=== PATIENT | female | born 1950 | race African-American/Black ===

== ENCOUNTER 2020-12-04 01:28 | Inpatient (IN) | payer OTHER ==
[~2020-12-04] VITALS: Ht 165.1 cm; Wt 136.7 kg
[2020-12-04 01:29] VITALS: BP 185/61
[2020-12-04 03:00] LABS: ABSOLUTE NEUTROPHILS 4.1 thou/uL (1.4-8.2); BASOPHILS 0.6 % (0.0-2.0); EOSINOPHILS 3.6 % (0.0-3.0); HEMATOCRIT 36.1 % (37.0-47.0); HEMOGLOBIN 11.7 gm/dL (12.0-15.0); MCH 26.3 pg (26.0-34.0); MCHC 32.5 g/dL (28.0-37.0); MONOCYTES 4.8 % (1.0-8.0); PLATELET COUNT 324 thou/uL (150-400); RBC 4.45 mil/uL (4.20-5.00); RDW 15.4 % (10.5-14.5); WBC 7.5 thou/uL (4.0-11.0)
[2020-12-04 03:07] LABS: ANION GAP 12 mmol/L (7-16); BUN 9 mg/dL (7-18); CALCIUM 8.7 mg/dL (8.5-10.1); CHLORIDE 102 mmol/L (98-107); CO2 26 mmol/L (21-32); GLUCOSE 128 mg/dL (74-106); POTASSIUM 3.7 mmol/L (3.5-5.1); SODIUM 140 mmol/L (136-145)
[2020-12-04 03:13] LABS: URINE BILIRUBIN NEGATIVE (Negative); URINE BLOOD TRACE (Negative); URINE CLARITY SL CLOUDY; URINE COLOR YELLOW; URINE GLUCOSE-RANDOM* NEGATIVE (Negative); URINE KETONES TRACE (Negative); URINE PROTEIN (DIPSTICK) NEGATIVE (Negative); URINE SPECIFIC GRAVITY >= 1.030 (1.005-1.035); URINE UROBILINOGEN 0.2 E.U./dl (0.2-1.0)
[2020-12-04 03:15] LABS: ALBUMIN 3.7 g/dL (3.4-5.0); SGOT 26 U/L (15-37); SGPT 33 U/L (30-65); TOTAL BILIRUBIN 0.4 mg/dL (0.2-1.0); TOTAL PROTEIN 7.4 g/dL (6.4-8.2); TROPONIN-I <0.06 ng/mL (<0.06)
[2020-12-04 03:21] LABS: URINE LEUKOCYTES-REFLEX 1+ (Negative); URINE NITRITE-REFLEX POSITIVE (Negative)
[2020-12-04 03:30] LABS: COARSE GRANULAR CASTS 0-3 Few /LPF (None Seen); CRYSTALS None Seen /LPF (None Seen); FINE GRANULAR CASTS 0-3 Few /LPF (None Seen); HYALINE CASTS 0-3 Few /LPF (None Seen); MUCUS 4-6 Moderate strn/LPF (None Seen); SQUAMOUS 0-3 Few /LPF (0-3); URINE RBC 3-10 Few /HPF (0-2); WBC CLUMPS Moderate (None Seen)
--- NOTE | 2020-12-04 07:10 | EKG ---
[place] [address] [email or web address] [place] [address] ELECTROCARDIOGRAM REPORT Name: CARLOS HARDY Room #: 170-7 ADM IN M.R.#: [id number] Admission: 12/04/20 Attend Phys: Anthony Christian MD Discharge: Date of : 48 Report #: [id number] [facility] ED Test Date: 2020-12-04 Test Time: 02:21:45 Pat Name: CARLOS HARDY Department: Room: 170 Gender: F Concrete Batch Plant Operator: : 1950 Requested By: Grey Davis Order Number: [id number] MD: Girish Gutiérrez Measurements Intervals [place] Rate: 96 P: 41 AK: 183 QRS: 5 QRSD: 100 T: -41 QT: 314 QTc: 397 Interpretive Statements Sinus rhythm Nonspecific repol abnormality, inferior leads Artifact in lead(s) II,aVR,aVL,aVF No previous ECG available for comparison Electronically Signed On 12-04-2020 7:10:39 CDT by Girish Gutiérrez [email or web address] <ELECTRONICALLY SIGNED> By: Girish Gutiérrez MD, [facility] 12/04/20709 0 0 Girish Gutiérrez MD, FACC /EPI
[2020-12-04 13:45] VITALS: BP 151/66
--- NOTE | 2020-12-04 16:10 | NUR ---
MULTIPLE BED CHANGE X6 SINCE 1400
[2020-12-04 19:01] VITALS: BP 151/66
[2020-12-04 20:38] VITALS: BP 142/73
[2020-12-05 00:03] VITALS: BP 143/67
[2020-12-05 05:07] LABS: ABSOLUTE NEUTROPHILS 2.3 thou/uL (1.4-8.2); BASOPHILS 1.4 % (0.0-2.0); HEMATOCRIT 35.5 % (37.0-47.0); HEMOGLOBIN 11.5 gm/dL (12.0-15.0); LYMPHOCYTES 48.9 % (24.0-44.0); MCH 26.5 pg (26.0-34.0); MCHC 32.5 g/dL (28.0-37.0); MCV 81.4 fL (80.0-100.0); MONOCYTES 4.9 % (1.0-8.0); PLATELET COUNT 318 thou/uL (150-400); POLYS 40.8 % (36.0-66.0); RBC 4.36 mil/uL (4.20-5.00); RDW 15.6 % (10.5-14.5); WBC 5.7 thou/uL (4.0-11.0)
[2020-12-05 05:24] LABS: CALCIUM 8.9 mg/dL (8.5-10.1); MAGNESIUM 1.5 mg/dL (1.8-2.4); POTASSIUM 3.5 mmol/L (3.5-5.1)
[2020-12-05 07:40] VITALS: BP 141/74
[2020-12-05] MEDS ORDERED: AMITRIPTYLINE100 MG PO (10:08)
[2020-12-05] MEDS ORDERED: VOLTAREN GEL 1100 G1 TOP (10:09)
[2020-12-05] MEDS ORDERED: LASIX 40 MG TAB40 MG PO (10:10)
[2020-12-05] MEDS ORDERED: NEURONTIN300 MG PO (10:11)
[2020-12-05] MEDS ORDERED: KRISTALOSE20 GM PO (10:12)
[2020-12-05] MEDS ORDERED: MELOXICAM15 MG PO (10:13)
[2020-12-05] MEDS ORDERED: GLUCOPHAGE500 MG PO (10:14)
[2020-12-05] MEDS ORDERED: ZYPREXA2.5 MG PO (10:15)
[2020-12-05] MEDS ORDERED: OXYBUTYNIN ER 55 M1 PO (10:16)
[2020-12-05] MEDS ORDERED: SIMVASTATIN80 MG PO (10:17)
[2020-12-05] MEDS ORDERED: ZANAFLEX4 M1 PO (10:18)
[2020-12-05] MEDS ORDERED: AMBIEN 5 MG TABL5 M1 PO (10:19)
--- NOTE | 2020-12-05 14:03 | NUR ---
ASSESSMENT: CM REVIWED CHART AND SPOKE WITH PT. PT WAS ADMITTED DUE TO WEAKNESS/UTI.PT HAS HX OF LEUKEMIA THAT IS CURRENTLY IN REMISSION. PT REPORTS THAT SHE LIVES IN A HOUSE WITH HER . PT REPORTS SHE HAS 6 STEPS IN THE HOME TO GET TO THE MAIN LEVEL BUT HAS A STAIR GLIDER WHERE SHE DOES NOT HAVE TO USE ANY STEPS. PT REPORTS SHE HAS A CANE AND WALKER AT HOME. PT ALSO REPORTS HAVING A COMMODE. PT STATES SHE HAS NOT HAD HH IN THE PAST THAT SHE IS AWARE OF BUT REPORTS SHE HAS BEEN TO [facility]. PT REPORTS IF SHE IS NEEDING SNF SHE PREFERS TO GO BACK THERE. PT/OT ORDERED TO SEE PATIENT. 5N CONSULT HAS ALSO BEEN PLACED. CM SENT REFERRAL TO [facility] BACKUP. CM NOTIFIED BEDSIDE RN THAT COVID TEST WILL LIKELY NEED TO BE COMPLETED PRIOR TO DISCHARGE AND TO PLEASE ORDER. CM WILL CONTINUE TO FOLLOW TO ASSIST NEEDED. AWAITING INPUT FROM 5N.
--- NOTE | 2020-12-05 14:40 | NUR ---
Received awake on bed. Due medications given as prescribed, able to swallow meds w/o difficulty. On room air. Vital signs stable. On MS, not on telemetry; no complains and signs of chest pain, crushing sensation and heaviness. Assisted in ADLs. On carb controlled diet- tolerating well; no nausea, no vomiting and no abdominal pain noted. On blood sugar monitoring, taken and recorded accordingly. With purewick in place- output measured and recorded accordingly; with episode of incontinence- checked regularly and changed as needed. With R chest port- accessed and saline locked; IV nurse informed thru voice mail re: chest port. With LE edema- advised pt to keep elevated. Complained of pain, due PRN pain meds given as prescribed. To continue monitoring patient. With consult to Dr Gillespie for possible rehab stay- store receiving specialistLAUREN Webster informed re consult. CM called and said to do Covid swab for possible SNF/Acute rehab stay- pt refused covid swab- CM informed re: this.
[2020-12-05] MEDS ORDERED: MELATONIN10 M1 PO (15:59)
[2020-12-05 17:03] VITALS: BP 146/81
[2020-12-05 21:02] VITALS: BP 168/83
--- NOTE | 2020-12-06 03:36 | NUR ---
ASSUMED PT CARE AT 1900.PT C/O PAIN ON HER KNEES,MANAGED WITH MED.BG MONITORED,NO COVERAGE NEEDED.R CHEST PORTHA CATH IN PLACE,CXR COMPLETED.PT USES A CPAP AT NIGHT,CONT PULSE OX IN PLACE.EXTERNAL FEMALE CATH IN PLACE WITH A LIGHT YELLOW URINE NOTED IN THE CANNISTER.PT SLEEPING ON HER BED AT THIS TIME.CALL LIGHT WITHIN REACH.
[2020-12-06 04:45] VITALS: BP 159/83
[2020-12-06 05:26] LABS: HEMATOCRIT 38.6 % (37.0-47.0); HEMOGLOBIN 12.5 gm/dL (12.0-15.0); MCH 26.6 pg (26.0-34.0); MCHC 32.3 g/dL (28.0-37.0); MCV 82.4 fL (80.0-100.0); RBC 4.69 mil/uL (4.20-5.00); RDW 15.9 % (10.5-14.5); WBC 7.1 thou/uL (4.0-11.0)
[2020-12-06 05:31] LABS: CREATININE 0.9 mg/dL (0.6-1.0); POTASSIUM 3.5 mmol/L (3.5-5.1)
[2020-12-06 07:45] VITALS: BP 136/81
[2020-12-06 16:29] VITALS: BP 132/80
--- NOTE | 2020-12-06 19:19 | NUR ---
Assumed pt care this am, diet and medications are tolerated. Had 1 bm this shift, blood sugar monotoring done. POC followed with no signs or verbalizations of distress noted. COVID PCR test done and sent to lab. Endorsed to the night sift.
[2020-12-06 19:50] VITALS: BP 119/52; BP 172/78
--- NOTE | 2020-12-07 02:47 | NUR ---
PT LYING IN BED. DENIES NEED FOR PAIN MEDICATION. EXT FEMALE CATH IN PLACE. RESTING COMFORTABLY. NO NEEDS VOICED. CALL LIGHT WITHIN REACH. FREQUENT OBSERVATION.
[2020-12-07 07:40] VITALS: BP 106/60
[2020-12-07 16:00] VITALS: BP 118/65
--- NOTE | 2020-12-07 18:58 | NUR ---
ATTEMPTED TO TRANSFER PT TO CHAIR AND SHE WAS IN TOO MUCH PAIN TO MOVE AN INCH. SHE PRN PAIN MEDICATION ADIMINISTERED. WILL CONT WITH PLAN OF CARE.
[2020-12-07 19:05] VITALS: BP 119/70
[2020-12-08 04:10] VITALS: BP 130/73
--- NOTE | 2020-12-08 05:06 | NUR ---
PT LYING IN BED. LORTAB PROVIDING PAIN RELIEF. RESTING COMFORTABLY. NO NEEDS VOICED. CALL LIGHT WITHIN REACH. FREQUENT OBSERVATION.
[2020-12-08 07:30] VITALS: BP 121/59
--- NOTE | 2020-12-08 11:13 | NUR ---
ASSUMED PT CARE THIS AM. PT IS ALERT & ORIENTED X4. PT HAS R CHEST PORT SINGLE LUMEN. PT IS ACCUCHECK ACHS. PT HAS EXTERNAL CATH ON. PT WAS WORKING WITH TODAY. PT C/O OF PAIN AND GIVEN PAIN MEDICATION. PT USES 02 NC 2L/MIN AND USES CPAP AT NIGHT. CM STATED THAT PT POSSIBLE D/C ANGELINA. PT ON THE CHAIR WATCHING TV. WILL CONTINUE TO MONITOR PT. FOLLOW POC.
--- NOTE | 2020-12-08 13:36 | NUR ---
ON-GOING ASSESSMENT: CM REVIEWED CHART AND MET WITH PATIENT TO DISCUSS SNF. PT REPORTS THAT THE SNF SHE WENT TO WAS IN [facility]. CM CLARIFIED AND PT IS WANTING TO GO TO [facility] NOT [facility]. CM FAXED REFERRAL TO [facility] AND SPOKE WITH KENYON IN ADMISSIONS. HE REPORTS HER REFERRAL LOOKS GOOD BUT HE WILL NOT HAVE A BED OPEN UNTIL LIKELY TOMORROW 12/09. CM UPDATED ATTENDING AND PLANS ARE FOR PATIENT TO GO TO SNF TOMORROW. CM WILL CONTINUE TO FOLLOW TO ASSIST NEEDED.
[2020-12-08 16:02] VITALS: BP 130/64
[2020-12-08 19:26] VITALS: BP 135/75
--- NOTE | 2020-12-09 02:07 | NUR ---
ASSUMED CARE AT 1900. PT IS A/O X4 AND IS UP WITH MAX ASSISTANCE USING WALKER AND GB. 2 LITERS NC AND CPAP AT NOC WITH CONTINOUS PULSE OX MACHINE. VSS. AFEBRILE. INCONTINENT OF URINE AND HAS A EXTERNAL FEMALE CATHETER IN PLACE. PATENT AND DRAINING LIGHT YELLOW URINE. C/O PAIN TO LE.PRN PAIN CREAM APPLIED TO BILAT KNEES. PRN PAIN MEDICATION GIVEN DIRECTED. HS BS 117. FALL PRECAUTIONS AND SCD'S IN PLACE, CALL LIGHT IS WITHIN REACH. PT CALLS OUT APPROPRIATELY. PROGRESSING TOWARDS PLAN OF CARE DC GOALS.
[2020-12-09 03:41] VITALS: BP 124/68
[2020-12-09 07:26] VITALS: BP 135/74
--- NOTE | 2020-12-09 13:04 | NUR ---
ON-GOING ASSESSMENT: CM REVIEWED CHART. CM SPOKE WITH KENYON IN ADMISSIONS AT [facility] WHO REPORTS THEY CAn ACCEPT PATIENT BUT WANTING COPY OF HER SECONDARY INSURANCE CARD. CM FAXED TO [facility]. ATTENDING STATING PT IS MEDICALLY STABLE FOR DISCHARGE. CM NOTIFIED KENYON IN ADMISSIONS THAT PATIENT HAS HAD ONE MODERNA INJECTION ON 12/02. TENTATIVE TRANSPORTATION TIME OF 1400 HAS BEEN SCHEDULED AND ATTENDING AWARE. AWAITING DISCHARGE ORDERS SO CM CAN FAX TO FACILITY. CM ATTEMPTED TO CONTACT PATIENTS X2 BUT NO ANSWER AT THIS TIME. CM WILL CONTINUE TO FOLLOW. CHART COPY WAS ORDERED AND BEDSIDE RN GIVEN THE NUMBER FOR REPORT. AWAITING ORDERS.
[2020-12-09] MEDS ORDERED: LIPITOR40 MG PO (13:13)
[2020-12-09] MEDS ORDERED: ACETAMINOPHEN325 M1 PO (13:14)
[2020-12-09] MEDS ORDERED: TRADJENTA5 MG PO (13:14)
[2020-12-09] MEDS ORDERED: CEPHALEXIN500 MG PO (13:15)
--- NOTE | 2020-12-09 13:45 | NUR ---
UPON ROUNDING ON THIS PT, AROUND 1240, WAS TOLD BY PT THAT SHE IS DISCHARGING "IN AN HOUR." FLUSHED PORT, BUT NO BLOOD RETURN. SHE REPORTS WHEN PORT INITIALLY ACCESSED THERE WAS BLOOD RETURN. RN, FILI, WAS UNUSRE WHETHER OR NOT PT WOULD BE CONTINUING ABX AT [facility]. THIS RN REMOVED CURRENT DRESSING, DE-ACCESSED PORT, CLEANED SITE AND RE-ACCESSED PORT, ALL PER HOSPITAL POLICY. FLUSHED BRISKLY, BUT STILL NO BLOOD RETURN. DISCUSSED WITH LAUREN PENN THAT PORT SHOULD BE TREATED WITH ALTEPLASE PRIOR TO HER LEAVING.
--- NOTE | 2020-12-09 15:31 | NUR ---
ASSUMED PT CARE AROUND 0710.PT ALERT X ORIENTED X 4.ON 2L/O2/NC. CPAP AT NIGHT.MAX ASSISTANCE NEEDED. INCONTINENCE OF BB. EXTERNAL FEMALE CATHETER IN PLACE.NO SKIN ISSUES. PAIN PARTIALLY CONTOLLED BY PAIN MEDS.ACCU CHECKS AND ACHS. IV RT CHEST, HEPARIN FLUSHED AND DC'D. FALL PRECAUTION IN PLACE. CALL LIGHT IN REACH. WILL CALL APPROPRIATELY.COVID NEGATIVE. DISCHARGING TO [facility] IN [place]. EXPECTED TIME OF MILL HELPER AROUND 1700. DICHARGE REPORT GIVEN TO VERONA AT THE FACILITY. SVETLANA SPOKE TO PT'S SON . WILL CONTINUE TO MONITOR.
[2020-12-09 15:53] VITALS: BP 137/74
== END 2020-12-09 18:20 | DRG 690 ==
LOC: ER 01:28 → EROBS 04:59 → 4S 04:59 → EROBS 16:11 → 4S 19:21
PROVIDERS: Emergency Medicine; Nurse Practitioner; ADMIT Hospitalist; ATTEND Hospitalist
PROC: 5A09357 Assistance with Respiratory Ventilation, Less than 24 Consecutive Hours, Continuous Positive Airway Pressure (ICD-10-PCS; principal; 2020-12-08)
PROC: 5A09357 Assistance with Respiratory Ventilation, Less than 24 Consecutive Hours, Continuous Positive Airway Pressure (ICD-10-PCS; 2020-12-09)
DX: N39.0 Urinary tract infection, site not specified (principal); C95.91 Leukemia, unspecified, in remission; Z68.43 Body mass index [BMI] 50.0-59.9, adult; E66.01 Morbid (severe) obesity due to excess calories; S80.02XA Contusion of left knee, initial encounter; S80.01XA Contusion of right knee, initial encounter; W18.39XA Other fall on same level, initial encounter; I10 Essential (primary) hypertension; E78.5 Hyperlipidemia, unspecified; E11.9 Type 2 diabetes mellitus without complications; E78.00 Pure hypercholesterolemia, unspecified; M19.071 Primary osteoarthritis, right ankle and foot; Z66 Do not resuscitate; Y93.89 Activity, other specified; Z88.5 Allergy status to narcotic agent; Y92.89 Other specified places as the place of occurrence of the external cause; Y99.8 Other external cause status; Z79.899 Other long term (current) drug therapy; Z20.822 Contact with and (suspected) exposure to COVID-19
CPT/HCPCS: 10195

== ENCOUNTER 2021-02-13 19:44 | Inpatient (IN) | payer OTHER ==
[~2021-02-13] VITALS: Ht 165.1 cm; Wt 138.8 kg
--- NOTE | ~2021-02-13 | EMS ---
[address] [address] EMS Patient Care Report Name: CARLOS HARDY Room #: 353-P [facility] IN M.R.#: [id number] Admission: 02/14/21 Attend Phys: Сергей Christine MD Discharge: 02/19/21 Date of : 48 Report #: [id number] THIS REPORT FOR: //name// Report Transmitted: 02/24/2021 14:24 EMS Care Summary [place], [place]/[facility] Incident [id number] @ 02/13/2021 18:58 Incident Location [address] [place], [place] [id number] Patient CARLOS HARDY Female, 70 Years 1950 Patient Address [address] [place] [address] Patient History Cancer, Unspecified,Diabetes,Hypertension (HTN), Patient Allergies Codeine,Iodine, Patient Medications Metformin, Chief Complaint swelling of lower legs Disposition Transported No Lights/[place] Dispatch Reason Sick Person Transported To [facility] Narrative patient is found sitting in a chair at the scene. patient states that since late November she has noticed that both of her lower legs have started to swell. patient states that the swelling is slowly migrating up her legs and that the swelling is now to her upper thigh area. patient is alert and talking. patient [address] [address] EMS Patient Care Report Name: CARLOS HARDY Room #: 353-P [facility] IN [facility]#: [id number] Admission: 02/14/21 Attend Phys: Сергей Christine MD Discharge: 02/19/21 Date of : [birth year] Report #: [id number] denies any trauma or injury. patient has no other complaints at this time. Initial Vitals @19:18P: 108,R: 16,BP: 175/91,Pain: 2/10,GCS: 15,Glucose: 114,CO: 3,SpO2: 99,Revised Trauma: 12, Assessments @19:11MENTAL:No Abnormalities,SKIN:No Abnormalities,HEENT:Head/Face: No Abnormalities,Eyes: No Abnormalities,Neck/Airway: No Abnormalities,LUNG SOUNDS:General: No Abnormalities,Left Upper: No Abnormalities,Right Upper: No Abnormalities,Left Lower: No Abnormalities,Right Lower: No Abnormalities,ABDOMEN:General: No Abnormalities,Left Upper: No Abnormalities,Right Upper: No Abnormalities,Left Lower: No Abnormalities,Right Lower: No Abnormalities,PELVIS//GI:No Abnormalities,EXTREMITIES:Left Leg: GHANSHYAM,Right Leg: GHANSHYAM,PULSE:NEURO:No Abnormalities, Impression Edema Procedures @19:11ALS AssessmentResponse: UnchangedSucceeded@19:13StretcherResponse: Unchanged@PTAGeneral CommentsResponse: Unchanged Timeline SPONGE DIVER,General Comments,Response: Unchanged 18:56,Call Received 18:56,Dispatch Notified 18:58,Dispatched 18:59,En Route 19:09,On Scene 19:11,At Patient 19:11,ALS Assessment,Response: UnchangedSucceeded, 19:13,Stretcher,Response: Unchanged 19:18,BP: 175/91 M,PULSE: 108,RR: 16 R,SPO2: 99 Ox,ETCO2: ,B,PAIN: 2,GCS: 15, 19:22,Depart Scene 20:03,At Destination 20:04,Call Closed Disclaimer v1.1 Copyright 2020 [employer] This EMS Care Summary contains data elements from the applicable legal record (which may be displayed differently). It is designed to provide pertinent information for the following purposes: continuity of care, clinical quality, and state data reporting. The complete legal record is available to ED staff and administrators of the receiving hospital in [facility]'s Patient Tracker. All data [address] [address] EMS Patient Care Report Name: CARLOS HARDY Room #: 353-P [facility] IN ..#: [id number] Admission: 02/14/21 Attend Phys: Сергей Christine MD Discharge: 02/19/21 Date of : [birth year] Report #: [id number] is provided "as is."
--- NOTE | ~2021-02-13 | HC ---
[facility] [address] CONSULTATION Name: CARLOS HARDY Room #: 353-P ADM IN M.R.#: [id number] Admission: 02/14/21 Attend Phys: Сергей Christine MD Discharge: Date of : 48 Report #: [id number] THIS REPORT FOR: cc: Kerrie Coates MD, Rebecca W. MD Smithson, David G. MD ~ DOC #: [id number] Grey Gillespie MD DATE OF SERVICE: 02/18/2021 HISTORY OF PRESENT ILLNESS: The patient is a 70-year-old -St [place]ian female admitted with bilateral lower extremity edema. Ultrasound was positive for bilateral lower extremity DVTs. VQ scan was low probability. She has been anticoagulated. She has morbid obesity and is significantly debilitated and at a decreased functional level premorbidly. We are seeing her in rehabilitation medicine consultation. Prior recent history include a fall on 12/03. She notes she has been nonambulatory since that fall. She went to 3 different rehab facilities including [facility], [facility] and ____. She has been utilizing a power wheelchair and with transfers was needing considerable assistance by her and son and thus she has been utilizing a sit to stand chair at home, they also have a stair glide. PAST MEDICAL HISTORY: Also includes diabetes mellitus type 2, leukemia, peripheral neuropathy. She has been morbid obesity is noted above. MEDICATIONS: Please see the full medication listing. ALLERGIES: CODEINE AND CONTRAST DYE. SOCIAL HISTORY: As noted above. Son works outside the home. is retired. There were needing to do a fair amount of lifting to help her with transfers premorbidly. HABITS: No history of tobacco or alcohol abuse. REVIEW OF SYSTEMS: No current complaints of chest pain, shortness of breath, abdominal discomfort. Complains of overall generalized weakness. Notes that she has gotten weaker with use of the [id number] machine. PHYSICAL EXAMINATION: GENERAL: She is a morbidly obese 70-year-old -[place] Helenian female in no obvious distress. 5 feet 5 inches, 306 pounds. VITAL SIGNS: Otherwise appear stable. HEENT: Appeared to be benign. NEUROLOGIC: Functional range of motion of both upper extremities, strength is grade 3+ to 4-/5. DTRs are trace to 1. Large pendulous abdomen. [facility] [address] [place] [address] CONSULTATION Name: HAYLEYCARLOS E Room #: 353-P [facility] IN ..#: [id number] Admission: 02/14/21 Attend Phys: Сергей Christine MD Discharge: Date of : 48 Report #: [id number] extremities: She does have some distal pitting edema, probably 1-2+. She has some discomfort with attempted manual muscle testing somewhat hard to grade with her abdominal pannus, enlarged girth. Appears to be probably at least a grade 3-3+. Functionally, she was seen by physical therapy and is sit to stand, min to mod assist x2. Occupational therapy noted max assist x2 for sit to stand. ASSESSMENT: A 70-year-old -St Helenian female with the following problem list: 1. Bilateral lower extremity deep venous thrombosis. 2. Generalized weakness and debilitation, utilizing power wheelchair. 3. Bilateral lower extremity edema, on Lasix. 4. Morbid obesity. 5. Hypertension. 6. Hyperlipidemia. 7. Diabetes mellitus type 2. 8. Leukemia, in remission. 9. Recent skilled and rehab stays since 11/2020. PLAN: We would recommend further skilled level therapy as most appropriate. Therapies are to continue working with her in the meantime. Thank you for asking us to assist in this patient's care. Grey Gillespie MD DGS/ALL By: 0910 29 Grey Gillespie MD /nt
[~2021-02-13 19:44] MED LIST: ACETAMINOPHEN325 M1 PO; AMBIEN 5 MG TABL5 M1 PO; AMITRIPTYLINE100 MG PO; CEPHALEXIN500 MG PO; GLUCOPHAGE500 MG PO; KRISTALOSE20 GM PO; LASIX 40 MG TAB40 MG PO; LIPITOR40 MG PO; MELATONIN10 M1 PO; MELOXICAM15 MG PO; NEURONTIN300 MG PO; OXYBUTYNIN ER 55 M1 PO; SIMVASTATIN80 MG PO; TRADJENTA5 MG PO; VOLTAREN GEL 1100 G1 TOP; ZANAFLEX4 M1 PO; ZYPREXA2.5 MG PO
[2021-02-13 19:45] VITALS: BP 225/95
[2021-02-13 22:58] LABS: ABSOLUTE NEUTROPHILS 3.9 thou/uL (1.4-8.2); BASOPHILS 1.1 % (0.0-2.0); EOSINOPHILS 4.4 % (0.0-3.0); HEMATOCRIT 34.6 % (37.0-47.0); HEMOGLOBIN 11.3 gm/dL (12.0-15.0); LYMPHOCYTES 39.6 % (24.0-44.0); MCH 27.1 pg (26.0-34.0); MCHC 32.7 g/dL (28.0-37.0); MCV 82.7 fL (80.0-100.0); MONOCYTES 5.4 % (1.0-8.0); PLATELET COUNT 350 thou/uL (150-400); POLYS 49.5 % (36.0-66.0); RBC 4.18 mil/uL (4.20-5.00); RDW 16.4 % (10.5-14.5); WBC 7.8 thou/uL (4.0-11.0)
[2021-02-13 23:00] LABS: ANION GAP 8 mmol/L (7-16); BUN 10 mg/dL (7-18); CALCIUM 9.2 mg/dL (8.5-10.1); CHLORIDE 104 mmol/L (98-107); CO2 28 mmol/L (21-32); CREATININE 0.9 mg/dL (0.6-1.0); GLUCOSE 132 mg/dL (74-106); SODIUM 140 mmol/L (136-145)
[2021-02-13 23:09] LABS: ALBUMIN 3.7 g/dL (3.4-5.0); SGOT 24 U/L (15-37); SGPT 40 U/L (30-65); TOTAL BILIRUBIN 0.2 mg/dL (0.2-1.0); TOTAL PROTEIN 7.4 g/dL (6.4-8.2); TROPONIN-I <0.06 ng/mL (<0.06)
[2021-02-13 23:53] VITALS: BP 163/84
[2021-02-14] VITALS (7 sets, daily range): BP systolic 154–171; BP diastolic 46–85
[2021-02-14 00:55] LABS: APTT < 20.0 Seconds (24.5-32.8); INR 0.94; PROTIME 10.3 Seconds (10.5-12.1)
--- NOTE | 2021-02-14 08:02 | NUR ---
Arrived from ER around 0150 on heparin gtt. No active signs of bleeding. C/O pain on left shoulder and arleen lower extremities.SALES AGENT PEST CONTROL SERVICE notified and order received. Hydrocodone x1 given with partial relief of pain. Pt. also has pain pump on right abd area for her chronic back pain. Tolerating room air well with O2 sat up to 100% though she verbalized being short of breath with exertion. Med rec verified with pt. Redness under arleen breast area with foul smell. Cleansed well , dried and interdry applied. External cath in place. Bed alarm on for safety.
--- NOTE | 2021-02-14 09:52 | EKG ---
[place] [address] [facility] [place] [address] ELECTROCARDIOGRAM REPORT Name: CARLOS HARDY Room #: 353-P ADM IN M.R.#: [id number] Admission: 02/14/21 Attend Phys: Natanael Rich Discharge: Date of : 48 Report #: [id number] [facility] ED Test Date: 2021-02-13 Test Time: 21:46:34 Pat Name: CARLOS HARDY Department: Room: [facility] Gender: F Assistant Cook: sloan : 1950 Requested By: Earl Solano Order Number: [id number] MD: Girish Gutiérrez Measurements Intervals [place] Rate: 89 P: 2 GA: 70 QRS: -2 QRSD: 118 T: -19 QT: 346 QTc: 421 Interpretive Statements Sinus rhythm, artifact Short GA interval LAE, consider biatrial enlargement Left ventricular hypertrophy Nonspecific T abnormalities, inferior leads Compared to ECG 12/04/2020 02:21:45 Short GA interval now present Left ventricular hypertrophy now present T-wave abnormality now present Early repolarization no longer present Electronically Signed On 02-14-2021 9:52:06 CDT by Girish Gutiérrez [email or web address] <ELECTRONICALLY SIGNED> By: Girish Gutiérrez MD, FAC 02/14/21 0952 [id number] [id number] Girish Gutiérrez MD, [facility] /EPI
--- NOTE | 2021-02-14 19:32 | NUR ---
RN ASSUMED PT'S CARE AT 0700-1900PM, PT IS A&OX4, PT IS CONTINUING HEAPRIN DRIP PROTOCOL FOR DVT, PT'S HEPARIN IS RUNNING 9UNITS/KG /HR SINCE 1830PM , PT DOES NOT HAVE S/S OF BLEEDING AT DAY SHIFT. PT'S VS ARE STABLE BY THIS TIME.
[2021-02-14] MEDS ORDERED: METFORMIN HCL500 M3 PO (20:26)
--- NOTE | 2021-02-15 02:58 | NUR ---
Pt. requested benadryl at HS for itching. WRAPAROUND FACILITATOR notified and order received. Pt. verbalized some relief. Hydrocodone given for leg pain with some relief. Cont. on heparin gtt. for DVT , no active signs of bleeding. External cath in place, pt. also incontinent and changed linens 3x. Slept fair during the night. Assisted to reposition on bed. Tolerating room air well , verbalized shortness of breath with exertion.
[2021-02-15 06:18] VITALS: BP 143/75
[2021-02-15 07:40] VITALS: BP 152/61
[2021-02-15 08:19] LABS: CREATININE 0.8 mg/dL (0.6-1.0); POTASSIUM 3.8 mmol/L (3.5-5.1)
[2021-02-15 11:12] VITALS: BP 179/75
[2021-02-15 15:50] VITALS: BP 149/65
--- NOTE | 2021-02-15 18:25 | NUR ---
RN ASSUMED PT'S CARE AT 0700AM, PT IS A&OX4, PT'S HEPARINDRIP HAS DC AT 1100AM AND PT STARTS PO RIVAROXABAN 15MG BID FOR BLE DVT, PT'S PAIN CAN CONTROL, BUT PT STILL IS WEAKNESS , PT IS UNABLE TO WALK BY HER SELF.
[2021-02-15 19:44] VITALS: BP 160/67
[2021-02-16 05:07] VITALS: BP 154/66
--- NOTE | 2021-02-16 05:11 | NUR ---
Patient making some progress towards outcome goals, Vital signs and rhythm stable. High fall risks, fall precautions in place. Incontinent of urine, external female catheter replace. Constipation, Lactulose given per patients request, No results yet.
[2021-02-16 05:46] LABS: HEMATOCRIT 33.4 % (37.0-47.0); HEMOGLOBIN 10.8 gm/dL (12.0-15.0); MCH 26.8 pg (26.0-34.0); MCHC 32.4 g/dL (28.0-37.0); MCV 82.9 fL (80.0-100.0); RBC 4.02 mil/uL (4.20-5.00); RDW 16.2 % (10.5-14.5); WBC 6.1 thou/uL (4.0-11.0)
[2021-02-16 07:44] VITALS: BP 135/62
[2021-02-16 11:14] VITALS: BP 139/61
--- NOTE | 2021-02-16 16:56 | NUR ---
RN ASSUMED PT'S CARE AT 0700AM, PT IS A&OX4, PT IS CONTINUING PO MEDICATIONS FOR BLE DVT, PT'S PAIN CAN CONTROL , PT'S VS ARE STABLE, PT DENIES SOB AND N/V, PT HAS PT TO WORK WITH HER, PT GETS UP TO CHAIR WITH 2 STAFF TO HELP, PT 'S BLE STLL ARE WEAK.
[2021-02-16 16:57] VITALS: BP 145/63
[2021-02-16 19:23] VITALS: BP 142/61
--- NOTE | 2021-02-16 20:59 | NUR ---
PT REQUESTED ADDITIONAL MEDICATION FOR BM, PT STATED STOOL HARD BUT STATES COLACE DOES NOT WORK. PT STATED AT HOME LACTULOSE USED TO WORK BUT TODAY DID NOT. PT RESTING IN BED. OBESE, BLE EDEMA, POSITIVE BS BUT REPORTING CONSTIPATION. PURWICK INTACT. R CHEST PORT INTACT. PT CALLS FOR ASSISTANCE. PT PROVIDED HS SNACK. PLAN TO DC HOME IN AM PER PT.
--- NOTE | 2021-02-17 00:30 | NUR ---
PT NOT ABLE TO TOLERATE BIPAP AT HS, RESPIRATORY THERAPIST NOTIFIED.
[2021-02-17 05:52] VITALS: BP 127/70
[2021-02-17 07:25] VITALS: BP 145/75
[2021-02-17 11:18] VITALS: BP 135/54
--- NOTE | 2021-02-17 14:17 | NUR ---
INITIAL ASSESSMENT: Received consult for discharge planning. NIDIA reviewed chart and spoke with nursing and attending physician. Pt was admitted from home due to dyspnea. Pt was discharged from [facility] to [facility] in November of this year. Recommendation made for pt to discharge to post-acute care. NIDIA met with pt at bedside. Introduced role of SW. Pt is alert/orientated. Pt states she was at [facility] and then went to [facility] for additional therapy. Pt was sent to [facility] from [facility] and then discharged home with [facility] on 02/09. Pt normally lives at home with her . Pt uses a cane or walker. Pt's PCP is Dr. Kerrie Coates at [facility]. NIDIA discussed discharge plans. Pt is agreeable with going to post-acute care. Pt requests to be evaluated by Myra. NIDIA explained admission criteria for 5N. Pt aware and would like to have eval. NIDIA provided pt with [facility] SNF list for review. Pt to review and discuss with family. NIDIA notified 5N rehabilitation assistant. 5N consult ordered. Awaiting input from Myra at this time. NIDIA is following to assist as needed with discharge planning.
[2021-02-17 15:27] VITALS: BP 110/86
--- NOTE | 2021-02-17 18:20 | NUR ---
RN ASSUMED PT'S CARE AT 0700AM, PT IS A&OX4, PT'S VS ARE STABLE, PT'S BLE PAIN CAN CONTROL BY MEDICATION AND REPOSTITION, PT HAS WORKED WITH PT/OT , BUT PT STILL HAS WEAKNESS, PT NEEDS 2 -3 STAFF TO ASSIST TO CHAIR OR BSC.
[2021-02-17 19:29] VITALS: BP 148/70
--- NOTE | 2021-02-17 21:52 | NUR ---
PT WAS UP IN CHAIR AND TRANSFERRED WITH THE ASSIST OF 3 PEOPLE TO THE BED. BLE EDEMA REMAINS. PT COMPLIANT WITH MEDS AND SNACK. PLAN FOR DC TO REHAB TOMORROW IF APPROVED THROUGH INSURANCE. PT CALLS FOR ASSISTANCE. BIPAP AT .
--- NOTE | 2021-02-17 23:51 | NUR ---
PT DECLINED USING THE BIPAP TONIGHT. RESPIRATORY NOTIFIED NURSE.
[2021-02-18 04:58] VITALS: BP 130/63
[2021-02-18 07:28] VITALS: BP 114/48
--- NOTE | 2021-02-18 07:45 | NUR ---
ASSUMED PT CARE AT SHIFT CHANGE. PT RESTING IN BED THIS MORNING. NO COMPLAINTS OR CONCERNS AT THIS TIME.
--- NOTE | 2021-02-18 12:26 | NUR ---
PT [facility], REQUESTS FAX ON PT LOCATION POST DC FROM THIS UNIT. MESSAGE SENT TO SVETLANA.
--- NOTE | 2021-02-18 13:05 | NUR ---
NIDIA reviewed chart and spoke with nursing and attending physician. Pt is progressing towards goals for discharge. SW discussed case with 5N beam machine operator. Pt does not meet admission criteria for 5N. Recommendation made for pt to go to a SNF. NIDIA met with pt at bedside to discuss SNF options. Pt requests referral to [facility]. SW explained need to check available Medicare days, as she has been in skilled recently. Pt verbalized understanding. NIDIA faxed SNF referral to [facility] and notified Lucero in admissions of new referral. [facility]PCI notification sent with referral. NIDIA is following to assist as needed with discharge planning.
[2021-02-18 16:15] VITALS: BP 134/50
[2021-02-18 19:30] VITALS: BP 123/59
--- NOTE | 2021-02-19 03:18 | NUR ---
Pt. requested pain med for leg pain then later on benadryl for itching with some relief. She slept for 2 hrs then after MN requested for sleep med. Ambien given with good result. Tolerating room air well though she verbalized being short of breath with exertion. External female cath in place , incontinent at times. Assisted to reposition prn for comfort. Making some progress towards care plan goals.
[2021-02-19 04:15] VITALS: BP 119/62
[2021-02-19 07:17] VITALS: BP 126/63
[2021-02-19 11:11] VITALS: BP 129/67
--- NOTE | 2021-02-19 11:55 | NUR ---
Pt triggered for high BMI 50.9. Noted pt with 10# wt gain since November admission. Currently with DVT, BLE edema. PMH DM, leukemia, HTN, HLD. Pt notes that she has gained weight d/t not being as active since her leg pain/swelling started and having edema. She reports UBWR 250-260#. Appetite excellent, but food choices not ideal. She reports she would like to have the pizza and kazakh fries for lunch, but knows that is not on her diet. Pt notes having some degree of nutrition education r/t DM but nothing ever on low Na and requested printed information on both DM and low Na but declined for weight loss. RD helped her with her lunch order and will call dietary to give them her dinner and breakfast order. Low nutrition risk at this time with printed education given.
--- NOTE | 2021-02-19 12:30 | NUR ---
SVETLANA S/W HARMAN FROM [facility] WHO INDICATED THEY WILL NOT BE ABLE TO ACCEPT PT. PT WOULD LIKE REFERRAL SENT TO [facility]. SVETLANA SPK WITH CLAUDIA IN ADMISSION WHO INDICATED THEY HAVE SKILLED BEDS AVAIL. CM FAXED REFERRAL TO [facility] AT [phone].
[2021-02-19 15:26] VITALS: BP 131/83
[2021-02-19] MEDS ORDERED: XARELTO10 MG PO (16:14)
[2021-02-19] MEDS ORDERED: XARELTO15 MG PO (16:14)
--- NOTE | 2021-02-19 16:56 | NUR ---
RN ASSUMED PT'S CARE AT 0700-1640PM, PT IS A&OX4, PT IS CONTINUNG PAIN MANAGEMENT AND TREAT BLE DVT, PT DENIES SOB AND N/V , BUT PT STILL HAS WEAKNESS, AND NEEDS HELP ADL, RN RECEIVED ORDER TO DC PT TO SNF, RN HAS GIVING REPORT, PT'S R CHEST POC LINE HAS DC, SNF TRANSPORTATION INFORMATION SCIENTIST PT AT 1640PM.
== END 2021-02-19 16:48 | DRG 299 ==
LOC: ER 19:44 → 3W 02-14 00:05 → EROBS 02-14 00:05 → 3W 02-14 01:21
PROVIDERS: Emergency Medicine; Nurse Practitioner Family; ADMIT Internal Medicine; ATTEND Internal Medicine
DX: I82.413 Acute embolism and thrombosis of femoral vein, bilateral (principal); J96.00 Acute respiratory failure, unspecified whether with hypoxia or hypercapnia; C95.90 Leukemia, unspecified not having achieved remission; Z68.43 Body mass index [BMI] 50.0-59.9, adult; I10 Essential (primary) hypertension; E78.5 Hyperlipidemia, unspecified; E11.9 Type 2 diabetes mellitus without complications; E11.42 Type 2 diabetes mellitus with diabetic polyneuropathy; E66.01 Morbid (severe) obesity due to excess calories; R53.81 Other malaise; M19.90 Unspecified osteoarthritis, unspecified site; Z88.6 Allergy status to analgesic agent; Z91.041 Radiographic dye allergy status
CPT/HCPCS: 10879